=== PATIENT | male | born 1980 | race Caucasian/White ===

== ENCOUNTER 2017-08-05 20:16 | Emergency (ER) | payer MEDICAID ==
[~2017-08-05] VITALS: Ht 170.2 cm; Wt 49.9 kg
[~2017-08-05 20:16] MED LIST: HYDR25CA PO; LAMO25TA5 PO; LORA-445 PO; LORA-446 PO; MULT400T5 PO
[2017-08-05 20:19] VITALS: BP 132/85
[2017-08-05] MEDS ORDERED: hydrOXyzine 50MG TABLET ONE (20:55)
[2017-08-05] MEDS ORDERED: TRIAMCINOLONE ACETONIDE 40 MG/ML, 1ML IM ONE (21:00)
== END 2017-08-05 21:29 | disposition home or self-care (01) ==
LOC: ED 20:46
DX: L20.9 Atopic dermatitis, unspecified (principal); B86 Scabies
CPT/HCPCS: 96372; 99283; J3301; Q0177

== ENCOUNTER 2017-08-06 10:26 | Emergency (ER) | payer MEDICAID ==
[~2017-08-06] VITALS: Ht 170.2 cm; Wt 50.0 kg
[2017-08-06] MEDS ORDERED: THIAMINE 100MG TABLET ONE (10:41)
[2017-08-06] MEDS ORDERED: LORazepam 2 MG/ML, 1ML ONE ×3 (10:42→11:55)
[2017-08-06 11:00] LABS: BASOPHILS # (AUTO) 0.03 x10^3/uL (0-0.1); BASOPHILS % (AUTO) 0 % (0-1); EOSINOPHILS # (AUTO) 0.01 x10^3/uL (0-0.4); EOSINOPHILS % (AUTO) 0 % (1-7); LYMPHOCYTES # (AUTO) 0.39 x10^3/uL (1-3.4); LYMPHOCYTES % (AUTO) 5 % (22-44); MD NO; MEAN CORPUSCULAR HEMOGLOBIN 36.5 pg (27.5-34.5); MEAN CORPUSCULAR HGB CONC 34.4 g/dL (33.2-36.2); MEAN PLATELET VOLUME 7.1 fL (7.4-10.4); MONOCYTES # (AUTO) 0.65 x10^3/uL (0.2-0.8); MONOCYTES % (AUTO) 9 % (2-9); NEUTROPHILS # (AUTO) 6.12 x10^3/uL (1.8-6.8); NEUTROPHILS % (AUTO) 85 % (42-75); PLATELET COUNT 164 x10^3/uL (130-400); RED BLOOD COUNT 3.94 x10^6/uL (4.38-5.82); RED CELL DISTRIBUTION WIDTH 14.9 % (9.4-14.8)
[2017-08-06] MEDS ORDERED: THIAMINE 100MG TABLET PO ONE (11:00)
[2017-08-06] MEDS ORDERED: SODIUM CHLORIDE 0.9% 1,000ML IVBOLUS ONE (11:00)
[2017-08-06] MEDS ORDERED: LORazepam 2 MG/ML, 1ML IVPush ONE ×2 (11:00→12:00)
[2017-08-06] MEDS ORDERED: SODIUM CHLORIDE FLUSH 10ML SYR IVF ONE (11:00)
[2017-08-06 11:09] LABS: ALANINE AMINOTRANSFERASE 74 U/L (12-78); ALBUMIN 3.3 g/dL (3.4-5.0); ANION GAP 17 mmol/L (5-15); CALCIUM 8.7 mg/dL (8.5-10.1); CHLORIDE 101 mmol/L (98-107); CREATININE 0.86 mg/dL (0.7-1.3)
[2017-08-06 11:11] LABS: ALKALINE PHOSPHATASE 112 U/L (45-117); BILIRUBIN,TOTAL 0.5 mg/dL (0.2-1.0); TOTAL PROTEIN 9.1 g/dL (6.4-8.2)
[2017-08-06 12:28] VITALS: BP 127/72
== END 2017-08-06 12:52 | disposition home or self-care (01) ==
LOC: ED 11:14
DX: R56.9 Unspecified convulsions (principal); F10.239 Alcohol dependence with withdrawal, unspecified; R45.1 Restlessness and agitation
CPT/HCPCS: 36415; 70450; 80053; 85025; 93005; 96374; 96376; 99285; J2060; J7030

== ENCOUNTER 2017-09-24 16:44 | Inpatient (IN) | payer MEDICAID ==
[~2017-09-24] VITALS: Ht 170.2 cm; Wt 54.4 kg
[2017-09-24] MEDS ORDERED: LORazepam 2 MG/ML, 1ML ONE ×2 (16:54→18:11)
[2017-09-24] MEDS ORDERED: SODIUM CHLORIDE 0.9% 1,000ML IVBOLUS ONE (17:00)
[2017-09-24] MEDS: LORazepam 2 MG/ML, 1ML IVPush PRN ×3 (17:00→18:17)
[2017-09-24] MEDS ORDERED: ONDANSETRON 2MG/ML, 2ML IVPush ONE (17:00)
[2017-09-24] MEDS ORDERED: THIAMINE 100 MG in SODIUM CHLORIDE 0.9% 50 ML IVPB ONE (17:00)
[2017-09-24] MEDS ORDERED: ONDANSETRON 2MG/ML, 2ML ONE (17:27)
[2017-09-24 17:41] LABS: ALBUMIN 3.1 g/dL (3.4-5.0); ANION GAP 22 mmol/L (5-15); CALCIUM 7.5 mg/dL (8.5-10.1); CHLORIDE 92 mmol/L (98-107)
[2017-09-24 17:45] LABS: ALANINE AMINOTRANSFERASE 103 U/L (12-78); ALKALINE PHOSPHATASE 107 U/L (45-117); BILIRUBIN,TOTAL 1.1 mg/dL (0.2-1.0); CREATININE 0.93 mg/dL (0.7-1.3); TOTAL PROTEIN 7.4 g/dL (6.4-8.2)
[2017-09-24 17:51] LABS: MEAN CORPUSCULAR HEMOGLOBIN 36.9 pg (27.5-34.5); MEAN CORPUSCULAR HGB CONC 34.9 g/dL (33.2-36.2); MEAN CORPUSCULAR VOLUME 105.8 fL (81-97); MEAN PLATELET VOLUME 7.6 fL (7.4-10.4); PLATELET COUNT 82 x10^3/uL (130-400); RED BLOOD COUNT 4.23 x10^6/uL (4.38-5.82); RED CELL DISTRIBUTION WIDTH 13.2 % (9.4-14.8)
[2017-09-24 17:52] LABS: MD YES
[2017-09-24 17:55] LABS: BAND#(MANUAL) 2.11 x10^3/uL; BANDS%(MANUAL) 19 % (0-7); EOS#(MANUAL) 0.11 x10^3/uL (0.0-0.4); EOS% (MANUAL) 1 % (1-7); LYMPH#(MANUAL) 0.44 x10^3/uL (1-3.4); LYMPHS% (MANUAL) 4 % (22-44); MONOS#(MANUAL) 0.56 x10^3/uL (0.3-2.7); MONOS% (MANUAL) 5 % (2-9); SEG#(MANUAL) 7.88 x10^3/uL (1.8-6.8); SEGS% (MANUAL) 71 % (42-75)
[2017-09-24 17:57] LABS: <PLATELET ESTIMATE> DECREASED; LARGE PLATELETS 1+; TOXIC GRAN 1+
[2017-09-24] MEDS ORDERED: POTASSIUM CHLORIDE 10 MEQ in D5%-0.45% NACL 1,000 ML IV SCH (18:00)
[2017-09-24] MEDS ORDERED: ACETAMINOPHEN 500 MG TABLET PO ONE (18:00)
[2017-09-24] MEDS ORDERED: LORazepam 0.5MG TABLET PO PRN (18:30)
[2017-09-24] MEDS ORDERED: BACLOFEN 10 MG TABLET PO PRN (18:30)
[2017-09-24] MEDS ORDERED: ONDANSETRON 2MG/ML, 2ML IVPush PRN (18:30)
[2017-09-24] MEDS ORDERED: LORazepam 2 MG/ML, 1ML IV PRN ×5 (18:30)
[2017-09-24] MEDS ORDERED: CHLORDIAZEPOXIDE 10 MG CAPSULE PO PRN (18:30)
[2017-09-24] MEDS ORDERED: LORazepam 1MG TABLET PO PRN ×3 (18:30)
[2017-09-24] MEDS ORDERED: DIPHENHYDRAMINE 50 MG CAPSULE PO PRN (18:30)
[2017-09-24] MEDS ORDERED: ACETAMINOPHEN 325 MG TABLET PO PRN (18:30)
[2017-09-24] MEDS ORDERED: ONDANSETRON ODT 4 MG PO PRN (18:30)
[2017-09-24] MEDS ORDERED: LABETALOL 5MG/ML, 20ML IVPush PRN (18:30)
[2017-09-24] MEDS ORDERED: CHLORDIAZEPOXIDE 25 MG CAPSULE PO PRN ×3 (18:30)
[2017-09-24] MEDS ORDERED: ENOXAPARIN 40 MG/0.4 ML SQ SCH (18:30)
[2017-09-24] MEDS ORDERED: morphine SULFATE 10 MG/ML, 1ML IVPush PRN (18:30)
[2017-09-24 21:14] VITALS: BP 121/85
[2017-09-24] MEDS: MAGNESIUM CHLORIDE 64 MG TABLET.DR PO SCH (21:54)
[2017-09-24] MEDS: SODIUM BICARBONATE 8.4% 150 MEQ in DEXTROSE 5% 1,000 ML IV SCH (23:07)
[2017-09-25 00:41] VITALS: BP 121/85
[2017-09-25 02:27] VITALS: BP 124/86
[2017-09-25] MEDS: SODIUM BICARBONATE 8.4% 150 MEQ in DEXTROSE 5% 1,000 ML IV SCH (04:39)
[2017-09-25] MEDS: LORazepam 1MG TABLET PO PRN ×2 (04:39→10:52)
[2017-09-25 06:58] LABS: ALANINE AMINOTRANSFERASE 103 U/L (12-78); ALBUMIN 2.8 g/dL (3.4-5.0); ANION GAP 11 mmol/L (5-15); CALCIUM 7.2 mg/dL (8.5-10.1); CHLORIDE 88 mmol/L (98-107); CREATININE 0.76 mg/dL (0.7-1.3)
[2017-09-25 07:00] LABS: ALKALINE PHOSPHATASE 95 U/L (45-117); BILIRUBIN,TOTAL 1.9 mg/dL (0.2-1.0); TOTAL PROTEIN 6.8 g/dL (6.4-8.2)
[2017-09-25 08:00] VITALS: BP 125/84
[2017-09-25] MEDS ORDERED: MAGNESIUM SULFATE PMX 2GM/50ML 50 ML IV ONE (08:30)
[2017-09-25] MEDS: MULTIVITAMINS/MINERALS TABLET PO SCH (08:33)
[2017-09-25] MEDS: MAGNESIUM CHLORIDE 64 MG TABLET.DR PO SCH ×3 (08:33→21:18)
[2017-09-25 08:38] LABS: MD YES; MEAN CORPUSCULAR HEMOGLOBIN 36.3 pg (27.5-34.5); MEAN CORPUSCULAR HGB CONC 34.9 g/dL (33.2-36.2); MEAN PLATELET VOLUME 7.9 fL (7.4-10.4); PLATELET COUNT 55 x10^3/uL (130-400); RED BLOOD COUNT 3.53 x10^6/uL (4.38-5.82)
[2017-09-25 08:45] LABS: BANDS%(MANUAL) 14 % (0-7); LYMPH#(MANUAL) 0.34 x10^3/uL (1-3.4); LYMPHS% (MANUAL) 4 % (22-44); METAMYELOCYTES# (MANUAL) 0.43 x10^3/uL (0-0); METAMYELOCYTES% (MANUAL) 5 % (0-1); MONOS#(MANUAL) 0.17 x10^3/uL (0.3-2.7); MONOS% (MANUAL) 2 % (2-9); SEG#(MANUAL) 6.45 x10^3/uL (1.8-6.8); SEGS% (MANUAL) 75 % (42-75)
[2017-09-25 08:46] LABS: <PLATELET ESTIMATE> DECREASED; <PLT MORPHOLOGY> NORMAL PLT MORPH; TOXIC GRAN 1+
[2017-09-25] MEDS ORDERED: PIPERONYL BUTOXIDE/PYRETHRINS SHAMPOO TP SCH (09:00)
[2017-09-25 09:17] LABS: THYROID STIMULATING HORMONE 3.15 mIU/L (0.358-3.740)
[2017-09-25 09:19] LABS: FOLATE LEVEL 7.4 ng/mL (3.1-17.5)
[2017-09-25] MEDS: CHLORDIAZEPOXIDE 25 MG CAPSULE PO SCH ×2 (10:09→17:01)
[2017-09-25] MEDS: POTASSIUM CHLORIDE 20 MEQ, MAGNESIUM SULFATE 1 GM, THIAMINE 200 MG, FOLIC ACID 1 MG, MV... IV SCH (10:09)
[2017-09-25 14:00] VITALS: BP_SYST 122; BP_SYST 153; BP_DIAS 77; BP_DIAS 88
[2017-09-25] MEDS: SODIUM CHLORIDE 0.9% 1,000 ML IV SCH ×2 (14:12→21:23)
[2017-09-25 14:19] LABS: CULTURE INDICATED? NO; MICROSCOPIC INDICATED
[2017-09-25 14:29] LABS: AMPHETAMINE SCREEN, URINE Negative (Negative); BARBITURATE SCREEN, URINE Negative (Negative); BENZODIAZEPINE SCREEN, URINE Negative (Negative); CANNABINOID SCREEN, URINE Negative (Negative); COCAINE SCREEN, URINE Negative (Negative); METHADONE SCREEN, URINE Negative (Negative); OPIATE SCREEN, URINE Negative (Negative)
[2017-09-25 15:34] LABS: ANION GAP 11 mmol/L (5-15); CALCIUM 7.1 mg/dL (8.5-10.1); CHLORIDE 94 mmol/L (98-107); CREATININE 0.44 mg/dL (0.7-1.3)
[2017-09-25 20:00] VITALS: BP 134/82
[2017-09-26] MEDS: CHLORDIAZEPOXIDE 25 MG CAPSULE PO SCH (01:23)
[2017-09-26 01:24] VITALS: BP 114/75
[2017-09-26] MEDS: SODIUM CHLORIDE 0.9% 1,000 ML IV SCH (04:15)
[2017-09-26 07:50] VITALS: BP 124/75
[2017-09-26] MEDS ORDERED: CHLORDIAZEPOXIDE 25 MG CAPSULE PO ONE (08:30)
[2017-09-26] MEDS: POTASSIUM CHLORIDE 20 MEQ, MAGNESIUM SULFATE 1 GM, THIAMINE 200 MG, FOLIC ACID 1 MG, MV... IV SCH (08:58)
[2017-09-26] MEDS: MULTIVITAMINS/MINERALS TABLET PO SCH (08:59)
[2017-09-26] MEDS: MAGNESIUM CHLORIDE 64 MG TABLET.DR PO SCH ×3 (08:59→22:07)
[2017-09-26 11:05] LABS: MEAN CORPUSCULAR HEMOGLOBIN 36.5 pg (27.5-34.5); MEAN CORPUSCULAR HGB CONC 34.5 g/dL (33.2-36.2); MEAN CORPUSCULAR VOLUME 105.7 fL (81-97); RED CELL DISTRIBUTION WIDTH 13.5 % (9.4-14.8)
[2017-09-26 11:10] LABS: ALBUMIN 2.4 g/dL (3.4-5.0); ANION GAP 12 mmol/L (5-15); CALCIUM 6.8 mg/dL (8.5-10.1); CHLORIDE 95 mmol/L (98-107)
[2017-09-26 11:14] LABS: ALANINE AMINOTRANSFERASE 85 U/L (12-78); ALKALINE PHOSPHATASE 105 U/L (45-117); BILIRUBIN,TOTAL 1.2 mg/dL (0.2-1.0); CREATININE 0.35 mg/dL (0.7-1.3); TOTAL PROTEIN 5.9 g/dL (6.4-8.2)
[2017-09-26 11:16] LABS: MD YES; MEAN PLATELET VOLUME 8.7 fL (7.4-10.4); PLATELET COUNT 70 x10^3/uL (130-400)
[2017-09-26 11:18] LABS: BAND#(MANUAL) 0.29 x10^3/uL; BANDS%(MANUAL) 4 % (0-7); EOS#(MANUAL) 0.07 x10^3/uL (0.0-0.4); EOS% (MANUAL) 1 % (1-7); LYMPH#(MANUAL) 0.29 x10^3/uL (1-3.4); LYMPHS% (MANUAL) 4 % (22-44); MONOS#(MANUAL) 0.51 x10^3/uL (0.3-2.7); MONOS% (MANUAL) 7 % (2-9); SEG#(MANUAL) 6.13 x10^3/uL (1.8-6.8); SEGS% (MANUAL) 84 % (42-75)
[2017-09-26 11:19] LABS: <PLATELET ESTIMATE> DECREASED; <PLT MORPHOLOGY> NORMAL PLT MORPH; TOXIC GRAN 1+
[2017-09-26 14:00] VITALS: BP 120/84
[2017-09-26] MEDS: POTASSIUM CHLORIDE 20 MEQ TAB.ER.PRT PO SCH ×2 (16:50→17:00)
[2017-09-26 18:32] VITALS: BP 120/71
[2017-09-27 02:00] VITALS: BP 117/78
[2017-09-27 07:54] VITALS: BP 121/81
[2017-09-27 08:19] LABS: BASOPHILS # (AUTO) 0.04 x10^3/uL (0-0.1); BASOPHILS % (AUTO) 1 % (0-1); EOSINOPHILS # (AUTO) 0.12 x10^3/uL (0-0.4); EOSINOPHILS % (AUTO) 2 % (1-7); LYMPHOCYTES # (AUTO) 0.52 x10^3/uL (1-3.4); LYMPHOCYTES % (AUTO) 7 % (22-44); MD NO; MEAN CORPUSCULAR HEMOGLOBIN 36.1 pg (27.5-34.5); MEAN CORPUSCULAR HGB CONC 34.1 g/dL (33.2-36.2); MEAN CORPUSCULAR VOLUME 105.9 fL (81-97); MONOCYTES # (AUTO) 0.85 x10^3/uL (0.2-0.8); MONOCYTES % (AUTO) 12 % (2-9); NEUTROPHILS # (AUTO) 5.83 x10^3/uL (1.8-6.8); NEUTROPHILS % (AUTO) 79 % (42-75); PLATELET COUNT 129 x10^3/uL (130-400); RED BLOOD COUNT 3.48 x10^6/uL (4.38-5.82); RED CELL DISTRIBUTION WIDTH 13.6 % (9.4-14.8)
[2017-09-27 08:28] LABS: ALANINE AMINOTRANSFERASE 100 U/L (12-78); ALBUMIN 2.6 g/dL (3.4-5.0); ANION GAP 6 mmol/L (5-15); CALCIUM 7.8 mg/dL (8.5-10.1); CHLORIDE 101 mmol/L (98-107); CREATININE 0.57 mg/dL (0.7-1.3)
[2017-09-27 08:30] LABS: ALKALINE PHOSPHATASE 155 U/L (45-117); BILIRUBIN,TOTAL 1.2 mg/dL (0.2-1.0); TOTAL PROTEIN 6.9 g/dL (6.4-8.2)
[2017-09-27] MEDS ORDERED: POTASSIUM CHLORIDE 40 MEQ in SODIUM CHLORIDE 0.9% 1,000 ML IV SCH (09:00)
[2017-09-27] MEDS: MULTIVITAMINS/MINERALS TABLET PO SCH (10:22)
[2017-09-27] MEDS: POTASSIUM CHLORIDE 20 MEQ TAB.ER.PRT PO SCH (10:22)
[2017-09-27] MEDS: POTASSIUM CHLORIDE 20 MEQ, MAGNESIUM SULFATE 1 GM, THIAMINE 200 MG, FOLIC ACID 1 MG, MV... IV SCH (10:23)
[2017-09-27 12:00] VITALS: BP 149/103
[2017-09-27 12:52] LABS: CLOSTRIDIUM DIFFICILE ANTIGEN POSITIVE; CLOSTRIDIUM DIFFICILE TOXIN NEGATIVE (Negative)
[2017-09-27 21:28] VITALS: BP 121/79
[2017-09-28 03:23] VITALS: BP 132/88
[2017-09-28 06:23] LABS: CHLORIDE 101 mmol/L (98-107)
[2017-09-28 06:31] LABS: ALANINE AMINOTRANSFERASE 134 U/L (12-78); ALBUMIN 2.6 g/dL (3.4-5.0); ALKALINE PHOSPHATASE 198 U/L (45-117); ANION GAP 8 mmol/L (5-15); BILIRUBIN,TOTAL 1.2 mg/dL (0.2-1.0); CALCIUM 7.9 mg/dL (8.5-10.1); CREATININE 0.41 mg/dL (0.7-1.3); TOTAL PROTEIN 6.7 g/dL (6.4-8.2)
[2017-09-28 07:46] VITALS: BP 115/80
[2017-09-28] MEDS ORDERED: PERMETHRIN CRM 5%, 60GM TP ONE (08:30)
[2017-09-28] MEDS ORDERED: DIPHENHYDRAMINE/ZINC CRM 2%, 30GM TP PRN (08:30)
[2017-09-28] MEDS ORDERED: FOLIC ACID 1 MG TABLET PO SCH (09:00)
[2017-09-28] MEDS ORDERED: MULTIVITAMIN 1 TABLET PO SCH (09:00)
[2017-09-28] MEDS: MULTIVITAMINS/MINERALS TABLET PO SCH (09:00)
[2017-09-28] MEDS ORDERED: THIAMINE 100MG TABLET PO SCH (09:00)
[2017-09-28] MEDS ORDERED: DIPH28CR5 TP (11:24)
[2017-09-28] MEDS ORDERED: THIA100T67 PO (11:24)
[2017-09-28] MEDS ORDERED: FOLI-17 PO (11:24)
[2017-09-28] MEDS ORDERED: HYDR25TA11 PO (11:24)
[2017-09-28] MEDS ORDERED: MULT1TAB60 PO (11:24)
== END 2017-09-28 12:58 | disposition home or self-care (01) | DRG 432 ==
LOC: ED 18:03 → EDIP 18:04 → ED 18:16 → 4WST 19:05 → 4EST 09-25 03:35
PROVIDERS: ADMIT Internal Medicine; ATTEND Internal Medicine
DX: K70.10 Alcoholic hepatitis without ascites (principal); K85.20 Alcohol induced acute pancreatitis without necrosis or infection; E44.0 Moderate protein-calorie malnutrition; Z68.1 Body mass index [BMI] 19.9 or less, adult; E87.1 Hypo-osmolality and hyponatremia; E87.2 Acidosis; F10.239 Alcohol dependence with withdrawal, unspecified; D69.6 Thrombocytopenia, unspecified; D75.89 Other specified diseases of blood and blood-forming organs; E83.42 Hypomagnesemia; E83.51 Hypocalcemia; E86.0 Dehydration; E87.6 Hypokalemia; F32.9 Major depressive disorder, single episode, unspecified; G40.909 Epilepsy, unspecified, not intractable, without status epilepticus; Z81.8 Family history of other mental and behavioral disorders
CPT/HCPCS: 36415; 71045; 76700; 80048; 80053; 80307; 81001; 82607; 82746; 82962; 83690; 83735; 84100; 84443; 85025; 87324; 93005; 96361; 96365; 96375; 99291; J2405; J3411; J3475; J3480; J7070; J2060; J2270; J7030; Q0177

== ENCOUNTER 2017-11-13 00:52 | Inpatient (IN) | payer MEDICAID ==
[~2017-11-13] VITALS: Ht 170.2 cm; Wt 66.2 kg
[~2017-11-13 00:52] MED LIST changes: +DIPH28CR5 TP; +FOLI-17 PO; +HYDR25TA11 PO; +MULT1TAB60 PO; +THIA100T67 PO
[2017-11-13 01:20] LABS: BASOPHILS # (AUTO) 0.01 x10^3/uL (0-0.1); BASOPHILS % (AUTO) 0 % (0-1); EOSINOPHILS # (AUTO) 0.02 x10^3/uL (0-0.4); EOSINOPHILS % (AUTO) 0 % (1-7); LYMPHOCYTES # (AUTO) 0.29 x10^3/uL (1-3.4); LYMPHOCYTES % (AUTO) 3 % (22-44); MD NO; MEAN CORPUSCULAR HEMOGLOBIN 36.3 pg (27.5-34.5); MEAN CORPUSCULAR HGB CONC 34.4 g/dL (33.2-36.2); MEAN CORPUSCULAR VOLUME 105.5 fL (81-97); MEAN PLATELET VOLUME 7.2 fL (7.4-10.4); MONOCYTES # (AUTO) 1.09 x10^3/uL (0.2-0.8); MONOCYTES % (AUTO) 11 % (2-9); NEUTROPHILS % (AUTO) 85 % (42-75); PLATELET COUNT 136 x10^3/uL (130-400); RED BLOOD COUNT 3.48 x10^6/uL (4.38-5.82); RED CELL DISTRIBUTION WIDTH 16.1 % (9.4-14.8)
[2017-11-13 01:30] LABS: ALANINE AMINOTRANSFERASE 77 U/L (12-78); ALBUMIN 3.5 g/dL (3.4-5.0); ANION GAP 19 mmol/L (5-15); CALCIUM 8.3 mg/dL (8.5-10.1); CHLORIDE 92 mmol/L (98-107); CREATININE 0.76 mg/dL (0.7-1.3)
[2017-11-13 01:32] LABS: ALKALINE PHOSPHATASE 134 U/L (45-117); BILIRUBIN,TOTAL 1.7 mg/dL (0.2-1.0); TOTAL PROTEIN 7.8 g/dL (6.4-8.2)
[2017-11-13] MEDS ORDERED: ONDANSETRON ODT 4 MG ONE (01:59)
[2017-11-13] MEDS ORDERED: ONDANSETRON ODT 4 MG PO ONE (02:00)
[2017-11-13] MEDS ORDERED: SODIUM CHLORIDE 0.9% 1,000ML IVBOLUS ONE (02:00)
[2017-11-13] MEDS ORDERED: METOCLOPRAMIDE 5 MG/ML, 2ML IVPush ONE (02:30)
[2017-11-13] MEDS ORDERED: LORazepam 2 MG/ML, 1ML ONE ×2 (02:40→02:44)
[2017-11-13] MEDS ORDERED: LORazepam 2 MG/ML, 1ML IVPush ONE (03:00)
[2017-11-13] MEDS ORDERED: POTASSIUM CHLORIDE 20 MEQ, MAGNESIUM SULFATE 2 GM, THIAMINE 100 MG, MVI ADULT 10 ML, FO... IV SCH ×2 (03:00→05:39)
[2017-11-13] MEDS ORDERED: METOCLOPRAMIDE 5 MG/ML, 2ML ONE (03:01)
[2017-11-13] MEDS ORDERED: POTASSIUM CHLORIDE 20 MEQ, MAGNESIUM SULFATE 1 GM, THIAMINE 200 MG, FOLIC ACID 1 MG, MV... IV ONE (03:17)
[2017-11-13] MEDS ORDERED: ONDANSETRON 2MG/ML, 2ML IVPush PRN ×2 (03:30→06:00)
[2017-11-13 03:56] VITALS: BP 108/68
[2017-11-13] MEDS ORDERED: LORazepam 1MG TABLET ONE (05:55)
[2017-11-13] MEDS ORDERED: TEMAZEPAM 15 MG CAPSULE PO PRN (06:00)
[2017-11-13] MEDS ORDERED: LORazepam 1MG TABLET PO PRN (06:00)
[2017-11-13] MEDS ORDERED: LABETALOL 5MG/ML, 20ML IVPush PRN (06:00)
[2017-11-13] MEDS ORDERED: LORazepam 2 MG/ML, 1ML IVPush PRN ×2 (06:00→14:00)
[2017-11-13] MEDS ORDERED: ACETAMINOPHEN 325 MG TABLET PO PRN (06:00)
[2017-11-13] MEDS ORDERED: ONDANSETRON ODT 4 MG PO PRN (06:00)
[2017-11-13 06:38] LABS: HEMOGLOBIN A1C 4.9 % (4.2-6.3)
[2017-11-13 06:49] VITALS: BP 101/66
[2017-11-13] MEDS: FAMOTIDINE 20 MG/2 ML IVPush SCH ×2 (07:24→21:00)
[2017-11-13] MEDS ORDERED: CHLORDIAZEPOXIDE 25 MG CAPSULE PO PRN ×3 (10:30)
[2017-11-13] MEDS ORDERED: BISACODYL 10 MG SUPP PR PRN (10:30)
[2017-11-13] MEDS ORDERED: DIPHENHYDRAMINE 50 MG/ML, 1ML IVPush PRN ×3 (10:30→11:00)
[2017-11-13] MEDS ORDERED: CALAMINE LOTION 180ML TP PRN ×2 (10:30→11:00)
[2017-11-13] MEDS: DOCUSATE 100 MG CAPSULE PO SCH (10:36)
[2017-11-13] MEDS: CHLORDIAZEPOXIDE 10 MG CAPSULE PO PRN (10:36)
[2017-11-13 10:57] LABS: BASOPHILS # (AUTO) 0.04 x10^3/uL (0-0.1); BASOPHILS % (AUTO) 1 % (0-1); EOSINOPHILS # (AUTO) 0.01 x10^3/uL (0-0.4); EOSINOPHILS % (AUTO) 0 % (1-7); LYMPHOCYTES # (AUTO) 0.67 x10^3/uL (1-3.4); LYMPHOCYTES % (AUTO) 9 % (22-44); MD NO; MEAN CORPUSCULAR HEMOGLOBIN 36.5 pg (27.5-34.5); MEAN CORPUSCULAR HGB CONC 34.6 g/dL (33.2-36.2); MEAN CORPUSCULAR VOLUME 105.5 fL (81-97); MEAN PLATELET VOLUME 7.9 fL (7.4-10.4); MONOCYTES # (AUTO) 0.86 x10^3/uL (0.2-0.8); MONOCYTES % (AUTO) 11 % (2-9); NEUTROPHILS # (AUTO) 6.09 x10^3/uL (1.8-6.8); NEUTROPHILS % (AUTO) 79 % (42-75); PLATELET COUNT 118 x10^3/uL (130-400); RED BLOOD COUNT 3.46 x10^6/uL (4.38-5.82); RED CELL DISTRIBUTION WIDTH 15.8 % (9.4-14.8)
[2017-11-13 11:09] LABS: ANION GAP 14 mmol/L (5-15); CHLORIDE 96 mmol/L (98-107); CREATININE 0.59 mg/dL (0.7-1.3)
[2017-11-13 15:18] VITALS: BP 105/74
[2017-11-13] MEDS: VANCOMYCIN 1,300 MG in SODIUM CHLORIDE 0.9% 250 ML IV SCH (16:30)
[2017-11-13] MEDS ORDERED: PHARMACOKINETIC CONSULTATION MC ONE (16:30)
[2017-11-13] MEDS ORDERED: PHARMACOKINETIC MONITORING MC PRN (16:30)
[2017-11-13] MEDS ORDERED: VANCOMYCIN PER PHARMACY MC PRN (16:30)
[2017-11-13] MEDS: AMPICILLIN/SULBACTAM 3 GM in SODIUM CHLORIDE 0.9% 100 ML IV SCH (21:17)
[2017-11-13 21:28] VITALS: BP 139/78
[2017-11-13 23:52] LABS: MICROSCOPIC INDICATED
[2017-11-13 23:57] LABS: CULTURE INDICATED? YES
[2017-11-14] MEDS: CHLORDIAZEPOXIDE 10 MG CAPSULE PO PRN (00:07)
[2017-11-14 02:39] VITALS: BP 122/85
[2017-11-14] MEDS: AMPICILLIN/SULBACTAM 3 GM in SODIUM CHLORIDE 0.9% 100 ML IV SCH ×2 (03:30→10:12)
[2017-11-14] MEDS: VANCOMYCIN 1,300 MG in SODIUM CHLORIDE 0.9% 250 ML IV SCH (04:30)
[2017-11-14 05:45] LABS: BASOPHILS # (AUTO) 0.02 x10^3/uL (0-0.1); BASOPHILS % (AUTO) 0 % (0-1); EOSINOPHILS # (AUTO) 0.05 x10^3/uL (0-0.4); EOSINOPHILS % (AUTO) 1 % (1-7); LYMPHOCYTES # (AUTO) 0.57 x10^3/uL (1-3.4); LYMPHOCYTES % (AUTO) 9 % (22-44); MD NO; MEAN CORPUSCULAR HEMOGLOBIN 36.1 pg (27.5-34.5); MEAN CORPUSCULAR HGB CONC 34.5 g/dL (33.2-36.2); MEAN CORPUSCULAR VOLUME 104.4 fL (81-97); MEAN PLATELET VOLUME 8.2 fL (7.4-10.4); MONOCYTES # (AUTO) 0.81 x10^3/uL (0.2-0.8); MONOCYTES % (AUTO) 13 % (2-9); NEUTROPHILS # (AUTO) 4.88 x10^3/uL (1.8-6.8); NEUTROPHILS % (AUTO) 77 % (42-75); PLATELET COUNT 102 x10^3/uL (130-400); RED BLOOD COUNT 3.58 x10^6/uL (4.38-5.82)
[2017-11-14 05:58] LABS: ALBUMIN 3.4 g/dL (3.4-5.0); ANION GAP 14 mmol/L (5-15); CALCIUM 8.6 mg/dL (8.5-10.1); CHLORIDE 96 mmol/L (98-107)
[2017-11-14 06:02] LABS: ALANINE AMINOTRANSFERASE 70 U/L (12-78); ALKALINE PHOSPHATASE 127 U/L (45-117); BILIRUBIN,TOTAL 1.6 mg/dL (0.2-1.0); CREATININE 0.51 mg/dL (0.7-1.3); TOTAL PROTEIN 7.7 g/dL (6.4-8.2)
[2017-11-14 06:39] VITALS: BP 107/65
[2017-11-14] MEDS ORDERED: POTASSIUM CHLORIDE 40 MEQ in SODIUM CHLORIDE 0.9% 500 ML IV ONE (08:30)
[2017-11-14] MEDS: DOCUSATE 100 MG CAPSULE PO SCH (08:45)
[2017-11-14] MEDS ORDERED: TRIAMCINOLONE CRM 0.1%, 15GM TP SCH (09:00)
[2017-11-14] MEDS: FAMOTIDINE 20 MG/2 ML IVPush SCH (10:12)
[2017-11-14] MEDS ORDERED: POTASSIUM CHLORIDE 20 MEQ TAB.ER.PRT PO SCH ×2 (12:30→17:00)
== END 2017-11-14 14:30 | disposition left against medical advice (07) | DRG 872 ==
LOC: ED 01:36 → EDIP 03:03 → 4EST 03:31 → 4WST 14:03
PROVIDERS: ADMIT Internal Medicine; ATTEND Internal Medicine
DX: A41.9 Sepsis, unspecified organism (principal); E87.1 Hypo-osmolality and hyponatremia; F10.231 Alcohol dependence with withdrawal delirium; B88.8 Other specified infestations; D50.9 Iron deficiency anemia, unspecified; D53.9 Nutritional anemia, unspecified; E83.39 Other disorders of phosphorus metabolism; E83.42 Hypomagnesemia; E87.6 Hypokalemia; Y90.9 Presence of alcohol in blood, level not specified; G40.909 Epilepsy, unspecified, not intractable, without status epilepticus; K70.9 Alcoholic liver disease, unspecified; L29.9 Pruritus, unspecified; F32.9 Major depressive disorder, single episode, unspecified; L40.9 Psoriasis, unspecified; R73.9 Hyperglycemia, unspecified; S01.502A Unspecified open wound of oral cavity, initial encounter; X58.XXXA Exposure to other specified factors, initial encounter; Y93.89 Activity, other specified; Y92.89 Other specified places as the place of occurrence of the external cause; Y99.8 Other external cause status
CPT/HCPCS: 36415; 84145; S0028; 70450; 71045; 80048; 80053; 80307; 81001; 83036; 83735; 84100; 85025; 87040; 87086; 93005; G0378; J0295; J3370; J3411; J3475; J3480; Q0162; J1200; J2060; J2765; J7030; J7050

== ENCOUNTER 2018-02-01 13:42 | Inpatient (IN) | payer MEDICAID ==
[~2018-02-01] VITALS: Ht 172.7 cm; Wt 58.1 kg
[2018-02-01] MEDS ORDERED: ONDANSETRON 2MG/ML, 2ML ONE (14:16)
[2018-02-01 14:25] LABS: MEAN CORPUSCULAR HEMOGLOBIN 38.3 pg (27.5-34.5); MEAN CORPUSCULAR HGB CONC 34.8 g/dL (33.2-36.2); MEAN CORPUSCULAR VOLUME 110.3 fL (81-97); MEAN PLATELET VOLUME 7.2 fL (7.4-10.4); PLATELET COUNT 182 x10^3/uL (130-400); RED BLOOD COUNT 3.67 x10^6/uL (4.38-5.82); RED CELL DISTRIBUTION WIDTH 14.8 % (9.4-14.8)
[2018-02-01] MEDS ORDERED: ONDANSETRON 2MG/ML, 2ML IVPush ONE (14:30)
[2018-02-01] MEDS ORDERED: LORazepam 2 MG/ML, 1ML ONE ×2 (14:30→15:36)
[2018-02-01 14:31] LABS: ALANINE AMINOTRANSFERASE 28 U/L (12-78); ALBUMIN 3.7 g/dL (3.4-5.0); ANION GAP 21 mmol/L (5-15); CALCIUM 8.9 mg/dL (8.5-10.1); CHLORIDE 94 mmol/L (98-107); CREATININE 0.64 mg/dL (0.7-1.3)
[2018-02-01 14:34] LABS: ALKALINE PHOSPHATASE 101 U/L (45-117); BILIRUBIN,TOTAL 0.7 mg/dL (0.2-1.0); TOTAL PROTEIN 8.3 g/dL (6.4-8.2)
[2018-02-01] MEDS ORDERED: LORazepam 2 MG/ML, 1ML IVPush ONE ×2 (15:00→15:30)
[2018-02-01] MEDS ORDERED: MAGNESIUM SULFATE 1 GM, THIAMINE 100 MG, FOLIC ACID 1 MG, MVI ADULT 10 ML in SODIUM CHL... IV ONE (15:00)
[2018-02-01] MEDS ORDERED: SODIUM CHLORIDE 0.9% 1,000 ML IV ONE (15:24)
[2018-02-01 15:29] LABS: BASOPHILS # (AUTO) 0.05 x10^3/uL (0-0.1); BASOPHILS % (AUTO) 1 % (0-1); EOSINOPHILS # (AUTO) 0.62 x10^3/uL (0-0.4); EOSINOPHILS % (AUTO) 7 % (1-7); LYMPHOCYTES % (AUTO) 9 % (22-44); MD SCAN; MONOCYTES # (AUTO) 0.69 x10^3/uL (0.2-0.8); MONOCYTES % (AUTO) 7 % (2-9); NEUTROPHILS % (AUTO) 77 % (42-75)
[2018-02-01] MEDS ORDERED: POLYETHYLENE GLYCOL 17 GM PACKET PO PRN (16:00)
[2018-02-01] MEDS ORDERED: LABETALOL 5MG/ML, 20ML IVPush PRN (16:00)
[2018-02-01] MEDS ORDERED: HYDROcodone/APAP 5/325 TABLET PO PRN (16:00)
[2018-02-01] MEDS ORDERED: LIDODERM 5% PATCH TD PRN (16:00)
[2018-02-01] MEDS ORDERED: KETOROLAC 30 MG/1 ML IV PRN (16:00)
[2018-02-01] MEDS ORDERED: ENALAPRILAT 1.25 MG/ML, 2ML IVPush PRN (16:00)
[2018-02-01] MEDS ORDERED: BISACODYL 10 MG SUPP PR PRN (16:00)
[2018-02-01] MEDS ORDERED: ACETAMINOPHEN 325 MG TABLET PO PRN (16:00)
[2018-02-01] MEDS ORDERED: LORazepam 2 MG/ML, 1ML IV PRN ×4 (16:00)
[2018-02-01] MEDS ORDERED: ONDANSETRON ODT 4 MG PO PRN (16:00)
[2018-02-01] MEDS ORDERED: LORazepam 0.5MG TABLET PO PRN (16:00)
[2018-02-01] MEDS ORDERED: ONDANSETRON 2MG/ML, 2ML IVPush PRN (16:00)
[2018-02-01] MEDS ORDERED: LORazepam 1MG TABLET PO PRN ×3 (16:00)
[2018-02-01] MEDS: ENOXAPARIN 40 MG/0.4 ML SQ SCH (17:00)
[2018-02-01 18:01] VITALS: BP 118/75
[2018-02-01] MEDS: DOCUSATE 100 MG CAPSULE PO SCH (20:29)
[2018-02-01 20:56] LABS: MICROSCOPIC INDICATED
[2018-02-01 21:00] VITALS: BP 134/87
[2018-02-01 21:05] LABS: AMPHETAMINE SCREEN, URINE Negative (Negative); BARBITURATE SCREEN, URINE Negative (Negative); BENZODIAZEPINE SCREEN, URINE Negative (Negative); CANNABINOID SCREEN, URINE Negative (Negative); COCAINE SCREEN, URINE Negative (Negative); METHADONE SCREEN, URINE Negative (Negative); OPIATE SCREEN, URINE Negative (Negative)
[2018-02-01 21:12] LABS: CULTURE INDICATED? NO
[2018-02-02 01:55] VITALS: BP 122/77
[2018-02-02] MEDS: SODIUM CHLORIDE 0.9% 1,000 ML IV SCH ×2 (04:24→12:00)
[2018-02-02 04:58] LABS: BASOPHILS # (AUTO) 0.04 x10^3/uL (0-0.1); BASOPHILS % (AUTO) 0 % (0-1); EOSINOPHILS # (AUTO) 0.45 x10^3/uL (0-0.4); EOSINOPHILS % (AUTO) 5 % (1-7); LYMPHOCYTES # (AUTO) 0.98 x10^3/uL (1-3.4); LYMPHOCYTES % (AUTO) 11 % (22-44); MD NO; MEAN CORPUSCULAR HEMOGLOBIN 37.4 pg (27.5-34.5); MEAN CORPUSCULAR HGB CONC 33.5 g/dL (33.2-36.2); MEAN CORPUSCULAR VOLUME 111.6 fL (81-97); MEAN PLATELET VOLUME 7.5 fL (7.4-10.4); MONOCYTES # (AUTO) 0.67 x10^3/uL (0.2-0.8); MONOCYTES % (AUTO) 7 % (2-9); NEUTROPHILS # (AUTO) 6.89 x10^3/uL (1.8-6.8); NEUTROPHILS % (AUTO) 76 % (42-75); PLATELET COUNT 129 x10^3/uL (130-400); RED BLOOD COUNT 3.41 x10^6/uL (4.38-5.82); RED CELL DISTRIBUTION WIDTH 14.4 % (9.4-14.8)
[2018-02-02 05:04] LABS: ANION GAP 8 mmol/L (5-15); CALCIUM 8.2 mg/dL (8.5-10.1); CHLORIDE 98 mmol/L (98-107); CREATININE 0.37 mg/dL (0.7-1.3)
[2018-02-02 07:42] VITALS: BP 116/75
[2018-02-02] MEDS: DOCUSATE 100 MG CAPSULE PO SCH (10:22)
[2018-02-02 13:04] VITALS: BP 119/80
[2018-02-02] MEDS ORDERED: THIAMINE 200 MG, FOLIC ACID 1 MG, MVI ADULT 10 ML in SODIUM CHLORIDE 0.9% 1,000 ML IV SCH (15:00)
[2018-02-02] MEDS: ENOXAPARIN 40 MG/0.4 ML SQ SCH (17:00)
== END 2018-02-02 21:46 | disposition left against medical advice (07) | DRG 101 ==
LOC: ED 14:14 → EDIP 15:21 → 4EST 16:33
PROVIDERS: ADMIT Internal Medicine; ATTEND Internal Medicine
DX: G40.509 Epileptic seizures related to external causes, not intractable, without status epilepticus (principal); G37.2 Central pontine myelinolysis; E87.1 Hypo-osmolality and hyponatremia; F10.239 Alcohol dependence with withdrawal, unspecified; E87.2 Acidosis; Z53.21 Procedure and treatment not carried out due to patient leaving prior to being seen by health care provider; F41.1 Generalized anxiety disorder; Y90.6 Blood alcohol level of 120-199 mg/100 ml; E86.0 Dehydration; K70.9 Alcoholic liver disease, unspecified; K59.09 Other constipation; Z91.81 History of falling; Z79.899 Other long term (current) drug therapy
CPT/HCPCS: 36415; 70450; 71045; 80048; 80053; 80307; 81001; 83735; 84100; 85025; 93005; 95819; 96374; 96375; 96376; 99285; G0378; J2405; J3411; J3475; J2060; J7030

== ENCOUNTER 2018-03-22 23:17 | Emergency (ER) | payer MEDICAID ==
[~2018-03-22] VITALS: Ht 172.7 cm; Wt 65.0 kg
[~2018-03-22 23:17] MED LIST changes: +CALA118S2 TP; +CETI10TA18 PO; +DOCU-131 PO; +ERGO500017 PO; +ONDA4TAB13 PO; +SERT50TA28 PO
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
[2018-03-23] MEDS ORDERED: TRIAMCINOLONE CRM 0.1%, 15GM TP SCH
[2018-03-23 00:40] LABS: BASOPHILS # (AUTO) 0.02 x10^3/uL (0-0.1); BASOPHILS % (AUTO) 0 % (0-1); EOSINOPHILS # (AUTO) 1.63 x10^3/uL (0-0.4); EOSINOPHILS % (AUTO) 24 % (1-7); LYMPHOCYTES # (AUTO) 0.92 x10^3/uL (1-3.4); LYMPHOCYTES % (AUTO) 14 % (22-44); MD NO; MEAN CORPUSCULAR HEMOGLOBIN 36.6 pg (27.5-34.5); MEAN CORPUSCULAR HGB CONC 34.3 g/dL (33.2-36.2); MEAN CORPUSCULAR VOLUME 106.7 fL (81-97); MONOCYTES # (AUTO) 0.57 x10^3/uL (0.2-0.8); MONOCYTES % (AUTO) 9 % (2-9); NEUTROPHILS # (AUTO) 3.61 x10^3/uL (1.8-6.8); NEUTROPHILS % (AUTO) 53 % (42-75); PLATELET COUNT 185 x10^3/uL (130-400); RED BLOOD COUNT 4.31 x10^6/uL (4.38-5.82); RED CELL DISTRIBUTION WIDTH 14.7 % (9.4-14.8)
[2018-03-23 00:52] LABS: ALANINE AMINOTRANSFERASE 22 U/L (12-78); ALBUMIN 3.6 g/dL (3.4-5.0); ANION GAP 14 mmol/L (5-15); CALCIUM 8.6 mg/dL (8.5-10.1); CHLORIDE 101 mmol/L (98-107); CREATININE 0.75 mg/dL (0.7-1.3); SALICYLATE LEVEL 1.9 mg/dL (2.8-20.0)
[2018-03-23 00:53] LABS: ACETAMINOPHEN < 2 mcg/mL (10-30)
[2018-03-23 01:04] LABS: ALKALINE PHOSPHATASE 93 U/L (45-117); BILIRUBIN,TOTAL 0.2 mg/dL (0.2-1.0); TOTAL PROTEIN 8.8 g/dL (6.4-8.2)
--- NOTE | 2018-03-23 01:08 | NUR ---
URINE SAMPLE SENT. PROVIDED PT WITH WATER PER HIS REQUEST, OK PER ERP.
[2018-03-23 01:17] VITALS: BP 124/86
[2018-03-23 01:48] LABS: AMPHETAMINE SCREEN, URINE Negative (Negative); BARBITURATE SCREEN, URINE Negative (Negative); BENZODIAZEPINE SCREEN, URINE Positive (Negative); CANNABINOID SCREEN, URINE Negative (Negative); COCAINE SCREEN, URINE Negative (Negative); METHADONE SCREEN, URINE Negative (Negative); OPIATE SCREEN, URINE Negative (Negative)
--- NOTE | 2018-03-23 01:48 | NUR ---
PT REFUSING IV SITE, DISCUSSED NEED FOR IV SITE FOR ADMISSION AND IV ABX'X, PT CONTINOUS TO REFUSE IV SITE. PT STATED " I DONT' WANT AND IV AND I'M LEAVING". ERP UPDATED THAT PT DOES NOT WANT IV SITE AND WANTING TO LEAVE AMA.
--- NOTE | 2018-03-23 01:53 | NUR ---
PT SIGNED AMA FORM, FORM PLACED IN PT'S CHART
[2018-03-23] MEDS ORDERED: ERTAPENEM 1 GM in SODIUM CHLORIDE 0.9% 50 ML IV ONE (02:30)
== END 2018-03-23 02:32 | disposition left against medical advice (07) ==
LOC: ED 03-23 00:21
DX: L03.317 Cellulitis of buttock (principal); L29.9 Pruritus, unspecified; R74.0 Nonspecific elevation of levels of transaminase and lactic acid dehydrogenase [LDH]; R21 Rash and other nonspecific skin eruption; F32.9 Major depressive disorder, single episode, unspecified; G40.909 Epilepsy, unspecified, not intractable, without status epilepticus; F41.1 Generalized anxiety disorder; Z72.9 Problem related to lifestyle, unspecified
CPT/HCPCS: 36415; 80053; 80307; 80329; 83605; 85025; 87040; 99283; Q0177; G0480

== ENCOUNTER 2018-03-27 09:56 | Inpatient (IN) | payer MEDICAID ==
[~2018-03-27] VITALS: Ht 172.7 cm; Wt 63.8 kg
[2018-03-27] MEDS ORDERED: SODIUM CHLORIDE 0.9% 1,000ML IVBOLUS ONE (10:30)
[2018-03-27] MEDS ORDERED: ONDANSETRON 2MG/ML, 2ML IVPush ONE (10:30)
[2018-03-27] MEDS ORDERED: SODIUM CHLORIDE FLUSH 10ML SYR IVF ONE (10:30)
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
[2018-03-27 10:43] LABS: MEAN CORPUSCULAR HEMOGLOBIN 35.7 pg (27.5-34.5); MEAN CORPUSCULAR HGB CONC 33.9 g/dL (33.2-36.2); MEAN CORPUSCULAR VOLUME 105.3 fL (81-97); MEAN PLATELET VOLUME 7.2 fL (7.4-10.4); PLATELET COUNT 149 x10^3/uL (130-400); RED BLOOD COUNT 3.62 x10^6/uL (4.38-5.82); RED CELL DISTRIBUTION WIDTH 14.6 % (9.4-14.8)
[2018-03-27 10:55] LABS: ALANINE AMINOTRANSFERASE 19 U/L (12-78); ALBUMIN 3.8 g/dL (3.4-5.0); ANION GAP 19 mmol/L (5-15); CALCIUM 9.5 mg/dL (8.5-10.1); CHLORIDE 94 mmol/L (98-107); CREATININE 0.81 mg/dL (0.7-1.3)
[2018-03-27 10:58] LABS: ALKALINE PHOSPHATASE 82 U/L (45-117); BILIRUBIN,TOTAL 0.7 mg/dL (0.2-1.0); TOTAL PROTEIN 8.4 g/dL (6.4-8.2)
[2018-03-27] MEDS ORDERED: ONDANSETRON 2MG/ML, 2ML ONE (11:04)
[2018-03-27 11:11] LABS: BASOPHILS # (AUTO) 0.01 x10^3/uL (0-0.1); BASOPHILS % (AUTO) 0 % (0-1); EOSINOPHILS # (AUTO) 0.02 x10^3/uL (0-0.4); EOSINOPHILS % (AUTO) 0 % (1-7); LYMPHOCYTES # (AUTO) 0.41 x10^3/uL (1-3.4); LYMPHOCYTES % (AUTO) 4 % (22-44); MD SCAN; MONOCYTES # (AUTO) 0.75 x10^3/uL (0.2-0.8); MONOCYTES % (AUTO) 8 % (2-9); NEUTROPHILS # (AUTO) 8.19 x10^3/uL (1.8-6.8); NEUTROPHILS % (AUTO) 87 % (42-75)
[2018-03-27] MEDS ORDERED: LORazepam 2 MG/ML, 1ML ONE (11:22)
--- NOTE | 2018-03-27 11:25 | NUR ---
NO EXPERIENCE: Seizure activity witnessed for approximately 10 seconds, Dr. Bass came to bedside to evaluate patient. Patient is now postictal, frequent reorientation and calming measures provided. Seizure pads in place as well as continuous blood pressure, SPO2 and cardiac monitoring. Patient's primary RN Aida at bedside discussing plan of care with patient.
[2018-03-27] MEDS ORDERED: LORazepam 2 MG/ML, 1ML IVPush ONE (11:30)
--- NOTE | 2018-03-27 12:52 | NUR ---
pt with a large bm. stool sent to lab
--- NOTE | 2018-03-27 13:06 | NUR ---
pt given water and tolerating well.
--- NOTE | 2018-03-27 13:28 | NUR ---
pt given water. pt tolerating water.
[2018-03-27] MEDS ORDERED: ONDANSETRON ODT 4 MG PO PRN (13:30)
[2018-03-27] MEDS ORDERED: LORazepam 1MG TABLET PO PRN ×4 (13:30)
[2018-03-27] MEDS ORDERED: hydrALAzine 20 MG/ML, 1ML IVPush PRN (13:30)
[2018-03-27] MEDS ORDERED: LORazepam 2 MG/ML, 1ML IV PRN ×5 (13:30)
[2018-03-27] MEDS ORDERED: LORazepam 0.5MG TABLET PO PRN (13:30)
[2018-03-27] MEDS ORDERED: FOLIC ACID 5 MG/ML IM ONE (13:30)
[2018-03-27] MEDS ORDERED: DOCUSATE 100 MG CAPSULE PO PRN (13:30)
[2018-03-27] MEDS ORDERED: ONDANSETRON 2MG/ML, 2ML IVPush PRN (13:30)
--- NOTE | 2018-03-27 13:41 | NUR ---
report given to jose sellers. pt will then be transferred.
[2018-03-27 13:47] LABS: CLOSTRIDIUM DIFFICILE ANTIGEN NEGATIVE; CLOSTRIDIUM DIFFICILE TOXIN NEGATIVE (Negative)
[2018-03-27 14:25] VITALS: BP 136/80
[2018-03-27] MEDS ORDERED: SODIUM PHOSPHATE 10 MMOL in SODIUM CHLORIDE 0.9% 500 ML IV ONE (14:30)
[2018-03-27] MEDS ORDERED: MAGNESIUM OXIDE 400 MG TABLET PO ONE (14:30)
[2018-03-27] MEDS: POTASSIUM CHLORIDE 20 MEQ, MAGNESIUM SULFATE 2 GM, MVI ADULT 10 ML, FOLIC ACID 1 MG in ... IV SCH (15:24)
[2018-03-27 18:20] VITALS: BP 124/78
[2018-03-27 19:33] LABS: AMPHETAMINE SCREEN, URINE Negative (Negative); BARBITURATE SCREEN, URINE Negative (Negative); BENZODIAZEPINE SCREEN, URINE Positive (Negative); CANNABINOID SCREEN, URINE Negative (Negative); COCAINE SCREEN, URINE Negative (Negative); METHADONE SCREEN, URINE Negative (Negative); OPIATE SCREEN, URINE Negative (Negative)
[2018-03-27 21:14] LABS: MICROSCOPIC AUTO
[2018-03-27 21:16] LABS: CULTURE INDICATED? NO
[2018-03-28 01:02] VITALS: BP 140/83
[2018-03-28 07:10] VITALS: BP 127/71
[2018-03-28] MEDS: THIAMINE 100MG TABLET PO SCH (08:30)
[2018-03-28] MEDS: MULTIVITAMINS/MINERALS TABLET PO SCH (08:30)
[2018-03-28] MEDS: POTASSIUM CHLORIDE 20 MEQ, MAGNESIUM SULFATE 2 GM, MVI ADULT 10 ML, FOLIC ACID 1 MG in ... IV SCH (11:55)
[2018-03-28 13:23] VITALS: BP 114/64
[2018-03-28] MEDS ORDERED: ERTAPENEM 1 GM in SODIUM CHLORIDE 0.9% 50 ML IV SCH (15:00)
[2018-03-28] MEDS: CETIRIZINE 10 MG TABLET PO SCH (15:27)
[2018-03-28] MEDS ORDERED: GADOBUTROL 7.5 MMOL/7.5 ML PFS ONE (17:24)
[2018-03-28 19:28] VITALS: BP 118/75
[2018-03-29 01:50] VITALS: BP 118/73
[2018-03-29] MEDS: CALAMINE LOTION 180ML TP PRN ×3 (03:54→08:59)
[2018-03-29 07:11] VITALS: BP 128/83
[2018-03-29] MEDS: MULTIVITAMINS/MINERALS TABLET PO SCH (09:12)
[2018-03-29] MEDS: POTASSIUM CHLORIDE 20 MEQ, MAGNESIUM SULFATE 2 GM, MVI ADULT 10 ML, FOLIC ACID 1 MG in ... IV SCH (09:12)
[2018-03-29] MEDS: THIAMINE 100MG TABLET PO SCH (09:12)
[2018-03-29 12:21] LABS: ALANINE AMINOTRANSFERASE 323 U/L (12-78); ALBUMIN 3.3 g/dL (3.4-5.0); ANION GAP 5 mmol/L (5-15); CALCIUM 8.6 mg/dL (8.5-10.1); CHLORIDE 104 mmol/L (98-107); CREATININE 0.55 mg/dL (0.7-1.3)
[2018-03-29 12:23] LABS: ALKALINE PHOSPHATASE 96 U/L (45-117); TOTAL PROTEIN 7.8 g/dL (6.4-8.2)
[2018-03-29 13:23] LABS: BASOPHILS # (AUTO) 0.01 x10^3/uL (0-0.1); BASOPHILS % (AUTO) 0 % (0-1); EOSINOPHILS # (AUTO) 0.38 x10^3/uL (0-0.4); EOSINOPHILS % (AUTO) 6 % (1-7); LYMPHOCYTES % (AUTO) 10 % (22-44); MD NO; MEAN CORPUSCULAR HEMOGLOBIN 36.1 pg (27.5-34.5); MEAN CORPUSCULAR HGB CONC 34.1 g/dL (33.2-36.2); MEAN PLATELET VOLUME 8.3 fL (7.4-10.4); MONOCYTES # (AUTO) 0.36 x10^3/uL (0.2-0.8); MONOCYTES % (AUTO) 6 % (2-9); NEUTROPHILS # (AUTO) 4.76 x10^3/uL (1.8-6.8); NEUTROPHILS % (AUTO) 78 % (42-75); PLATELET COUNT 125 x10^3/uL (130-400); RED BLOOD COUNT 3.87 x10^6/uL (4.38-5.82); RED CELL DISTRIBUTION WIDTH 14.9 % (9.4-14.8)
[2018-03-29 15:53] VITALS: BP 128/82
[2018-03-29] MEDS: CETIRIZINE 10 MG TABLET PO SCH (17:41)
[2018-03-29 19:48] VITALS: BP 121/83
[2018-03-30 01:04] VITALS: BP 121/85
[2018-03-30 06:43] LABS: ALBUMIN 3.7 g/dL (3.4-5.0); ANION GAP 9 mmol/L (5-15); CALCIUM 9.4 mg/dL (8.5-10.1); CHLORIDE 101 mmol/L (98-107)
[2018-03-30 06:45] LABS: ALANINE AMINOTRANSFERASE 354 U/L (12-78); ALKALINE PHOSPHATASE 102 U/L (45-117); BILIRUBIN,TOTAL 0.7 mg/dL (0.2-1.0); CREATININE 0.68 mg/dL (0.7-1.3); TOTAL PROTEIN 8.6 g/dL (6.4-8.2)
[2018-03-30] MEDS: MULTIVITAMINS/MINERALS TABLET PO SCH (08:32)
[2018-03-30] MEDS: THIAMINE 100MG TABLET PO SCH (08:32)
[2018-03-30] MEDS: POTASSIUM CHLORIDE 20 MEQ, MAGNESIUM SULFATE 2 GM, MVI ADULT 10 ML, FOLIC ACID 1 MG in ... IV SCH (09:00)
[2018-03-30 09:28] VITALS: BP 119/83
[2018-03-30] MEDS ORDERED: THIA100T67 PO (12:30)
[2018-03-30] MEDS ORDERED: MULT-484 PO (12:30)
== END 2018-03-30 13:50 | disposition home or self-care (01) | DRG 101 ==
LOC: ED 10:08 → EDIP 13:21 → 4WST 13:58 → DCLOUNGE 03-30 13:37
PROVIDERS: ADMIT Internal Medicine; ATTEND Internal Medicine
DX: G40.909 Epilepsy, unspecified, not intractable, without status epilepticus (principal); E87.1 Hypo-osmolality and hyponatremia; E87.2 Acidosis; F10.239 Alcohol dependence with withdrawal, unspecified; B95.61 Methicillin susceptible Staphylococcus aureus infection as the cause of diseases classified elsewhere; D64.9 Anemia, unspecified; F10.229 Alcohol dependence with intoxication, unspecified; F41.1 Generalized anxiety disorder; K70.9 Alcoholic liver disease, unspecified; L29.9 Pruritus, unspecified; F32.9 Major depressive disorder, single episode, unspecified; R00.0 Tachycardia, unspecified
CPT/HCPCS: 36415; 74021; 99285; J7042; 70450; 70553; 80053; 80307; 81001; 82140; 83735; 84100; 85025; 87040; 87324; 93005; 95819; 96361; 96374; 96375; A9585; G0378; J1335; J2405; J3475; J3480; 92522-GN; J2060; J7030

== ENCOUNTER 2018-05-27 15:01 | Inpatient (IN) | payer MEDICAID, OTHER ==
[~2018-05-27] VITALS: Ht 170.2 cm; Wt 60.8 kg
[~2018-05-27 15:01] MED LIST changes: +MULT-484 PO
[2018-05-27] MEDS ORDERED: ONDANSETRON ODT 4 MG ONE (15:11)
[2018-05-27] MEDS ORDERED: SODIUM CHLORIDE 0.9% 1,000 ML IV ONE (15:26)
[2018-05-27] MEDS ORDERED: LORazepam 2 MG/ML, 1ML ONE (15:27)
[2018-05-27] MEDS ORDERED: LORazepam 2 MG/ML, 1ML IVPush ONE (15:30)
[2018-05-27] MEDS ORDERED: LORazepam 1MG TABLET PO ONE (15:30)
[2018-05-27] MEDS ORDERED: THIAMINE 100 MG in SODIUM CHLORIDE 0.9% 50 ML IVPB ONE (15:30)
[2018-05-27] MEDS ORDERED: ONDANSETRON ODT 4 MG PO ONE (15:30)
[2018-05-27] MEDS ORDERED: SODIUM CHLORIDE FLUSH 10ML SYR IVF ONE (15:30)
--- NOTE | 2018-05-27 15:34 | NUR ---
PT HAD SEIZURE X 1 IN ED, RN AT BEDSIDE AT TIME OF SEIZURE. PT BIT TONGUE, BLOOD SUCTIONED. AIRWAY MAINTAINED. SEIZURE ACTIVITY STOPPED AFTER APPROX 45 SECONDS. 1 MG IM ATIVAN ADMIN PER MD MATHEW' VERBAL ORDER. Addendum: 05/27/18 at 1545 by JAMEL PT HAD SEIZURE X 1 IN ED, RN AT BEDSIDE AT TIME OF SEIZURE. PT BIT TONGUE, BLOOD SUCTIONED. AIRWAY MAINTAINED. SEIZURE ACTIVITY STOPPED AFTER APPROX 45 SECONDS. 1 MG IM ATIVAN ADMIN PER MD MATHEW' VERBAL ORDER. WITH EXCEPTION TO TONGUE BITING, PT DID NOT SUSTAIN ANY INJURY.
--- NOTE | 2018-05-27 15:45 | NUR ---
SITTER REQUESTED PT IS POSTICTAL AND HIGH RISK FOR PULLING LINES/MONITORS.
--- NOTE | 2018-05-27 15:58 | NUR ---
PT SLEEPING AT THIS TIME, RESPS EVEN AND UNLABORED. ALL MONITORS IN PLACE. SEIZURE PRECAUTIONS IN PLACE. NO ORAL BLEEDING AT THIS TIME.
[2018-05-27] MEDS ORDERED: LORazepam 2 MG/ML, 1ML IM ONE (16:00)
[2018-05-27 16:11] LABS: BASOPHILS # (AUTO) 0.03 x10^3/uL (0-0.1); BASOPHILS % (AUTO) 0 % (0-1); EOSINOPHILS # (AUTO) 0.01 x10^3/uL (0-0.4); EOSINOPHILS % (AUTO) 0 % (1-7); LYMPHOCYTES # (AUTO) 0.28 x10^3/uL (1-3.4); LYMPHOCYTES % (AUTO) 2 % (22-44); MD NO; MEAN CORPUSCULAR HEMOGLOBIN 34.8 pg (27.5-34.5); MEAN CORPUSCULAR HGB CONC 34.4 g/dL (33.2-36.2); MEAN CORPUSCULAR VOLUME 101.2 fL (81-97); MEAN PLATELET VOLUME 6.6 fL (7.4-10.4); MONOCYTES # (AUTO) 0.79 x10^3/uL (0.2-0.8); MONOCYTES % (AUTO) 7 % (2-9); NEUTROPHILS # (AUTO) 10.69 x10^3/uL (1.8-6.8); NEUTROPHILS % (AUTO) 91 % (42-75); PLATELET COUNT 148 x10^3/uL (130-400); RED BLOOD COUNT 3.51 x10^6/uL (4.38-5.82); RED CELL DISTRIBUTION WIDTH 16.9 % (9.4-14.8)
--- NOTE | 2018-05-27 16:13 | NUR ---
PT TO CT. NADN AT THIS TIME.
[2018-05-27 16:22] LABS: ALANINE AMINOTRANSFERASE 34 U/L (12-78); ALBUMIN 3.2 g/dL (3.4-5.0); ANION GAP 20 mmol/L (5-15); CALCIUM 8.4 mg/dL (8.5-10.1); CHLORIDE 97 mmol/L (98-107); CREATININE 0.82 mg/dL (0.7-1.3)
[2018-05-27 16:24] LABS: ALKALINE PHOSPHATASE 96 U/L (45-117); BILIRUBIN,TOTAL 0.8 mg/dL (0.2-1.0); TOTAL PROTEIN 7.5 g/dL (6.4-8.2)
[2018-05-27 16:26] LABS: SALICYLATE LEVEL < 1.7 mg/dL (2.8-20.0)
[2018-05-27 16:27] LABS: ACETAMINOPHEN < 2 mcg/mL (10-30)
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
--- NOTE | 2018-05-27 17:29 | NUR ---
PT DONE WITH DECON, MOVED INTO ROOM 16. ALL MONIOTRS REPLACED. BELONGINGS DOUBLE BAGGED AND PLACED WITH PT. THIAMINE WAS SENT FROM PHARMACY, RN UNABLE TO START IN TIME D/T DECON PROCESS. THIAMINE CANNOT BE GIVEN INSTRUCTIONS STATE DON'T HANG AFTER 1700. MED SENT BACK TO PHARMACY, PHARMACY NOTIFIED PT NEEDS NEW IV THIAMINE.
[2018-05-27] MEDS ORDERED: SODIUM CHLORIDE FLUSH 10ML SYR IVF PRN (17:30)
--- NOTE | 2018-05-27 17:41 | NUR ---
REPORT GIVEN TO SAADIA HAYNES, PT AWAITING TRASNPORT TO [facility].
--- NOTE | 2018-05-27 17:50 | NUR ---
PT HAS CIWA SCORE 11, [facility] NOTIFIED. THIS RN ADMINISTERED 1 MG IV ATIVAN, IV PUSH WITH PRETTY MATHEW' OK. PT TOLERATED WELL. OXYGEN REAPPLIED AT 2L/MIN FOR TRANSPORT. PT A&O TO PERSON AND PLACE, RESPS EVEN AND UNLABORED, ITZELN.
--- NOTE | 2018-05-27 18:04 | NUR ---
SAADIA HAYNES CALLED TO UPDATE, RN NOTIFIED PT WAS MEDICATED WITH 1 MG IV ATIVAN FOR CIWA SCORE 11. PT A&O TO PERSON AND PLACE, NEURO INTACT, FOLLOWING COMMANDS. SPEECH CLEAR, SPEAKING IN FULL SENTENCES WITHOUT DIFFICULTY AT TIME OF TRANSFER. PT TRANSPORTED WITH BELONGINGS, DOUBLE BAGGED, BY EDT. PT TRANSPORTED WEARING OXYGEN AT 2L/MIN. NADN AT TRANSPORT. THIAMINE ARRIVED FROM PHARMACY, MEDICATION TUBED TO [facility] FLOOR. PIV PATENT AT TIME OF TRANSFER, INFUSING NS AT 75ML /HR. RECEIVING RN AWARE OF NEED FOR URINE SAMPLE FOR UA AND UTOX.
[2018-05-27 18:06] VITALS: BP 114/70
[2018-05-27] MEDS ORDERED: NS + 20MEQ KCL 1,000 ML IV SCH (19:40)
[2018-05-27] MEDS ORDERED: PERMETHRIN CRM 5%, 60GM TP ONE (20:00)
[2018-05-27] MEDS ORDERED: POLYETHYLENE GLYCOL 17 GM PACKET PO PRN (20:00)
[2018-05-27] MEDS ORDERED: BISACODYL 10 MG SUPP PR PRN (20:00)
[2018-05-27] MEDS ORDERED: hydrALAzine 20 MG/ML, 1ML IVPush PRN (20:00)
[2018-05-27] MEDS ORDERED: ONDANSETRON ODT 4 MG PO PRN (20:00)
[2018-05-27] MEDS ORDERED: ACETAMINOPHEN 325 MG TABLET PO PRN (20:00)
[2018-05-27] MEDS: THIAMINE 100MG TABLET PO SCH (20:55)
[2018-05-27] MEDS: CETIRIZINE 10 MG TABLET PO SCH (21:16)
[2018-05-27] MEDS: LORazepam 2 MG/ML, 1ML IVPush PRN (21:17)
[2018-05-27 21:55] LABS: MICROSCOPIC INDICATED
[2018-05-27 22:03] LABS: CULTURE INDICATED? NO
[2018-05-27 22:04] LABS: AMPHETAMINE SCREEN, URINE Negative (Negative); BARBITURATE SCREEN, URINE Negative (Negative); BENZODIAZEPINE SCREEN, URINE Negative (Negative); CANNABINOID SCREEN, URINE Negative (Negative); COCAINE SCREEN, URINE Negative (Negative); METHADONE SCREEN, URINE Negative (Negative); OPIATE SCREEN, URINE Negative (Negative)
[2018-05-28] MEDS: LORazepam 2 MG/ML, 1ML IVPush PRN ×3 (00:24→17:22)
[2018-05-28 01:11] VITALS: BP 127/79
[2018-05-28] MEDS: CHLORDIAZEPOXIDE 25 MG CAPSULE PO PRN ×2 (01:22→17:22)
[2018-05-28 07:28] LABS: ALBUMIN 2.8 g/dL (3.4-5.0); ANION GAP 10 mmol/L (5-15); CALCIUM 8.3 mg/dL (8.5-10.1); CHLORIDE 103 mmol/L (98-107)
[2018-05-28 07:31] LABS: ALANINE AMINOTRANSFERASE 28 U/L (12-78); ALKALINE PHOSPHATASE 89 U/L (45-117); BILIRUBIN,TOTAL 1.1 mg/dL (0.2-1.0); TOTAL PROTEIN 6.9 g/dL (6.4-8.2)
[2018-05-28 07:36] LABS: BASOPHILS # (AUTO) 0.02 x10^3/uL (0-0.1); BASOPHILS % (AUTO) 0 % (0-1); EOSINOPHILS # (AUTO) 0.12 x10^3/uL (0-0.4); EOSINOPHILS % (AUTO) 1 % (1-7); LYMPHOCYTES # (AUTO) 0.57 x10^3/uL (1-3.4); LYMPHOCYTES % (AUTO) 7 % (22-44); MD NO; MEAN CORPUSCULAR HEMOGLOBIN 34.2 pg (27.5-34.5); MEAN CORPUSCULAR HGB CONC 33.3 g/dL (33.2-36.2); MEAN CORPUSCULAR VOLUME 102.7 fL (81-97); MEAN PLATELET VOLUME 7.3 fL (7.4-10.4); MONOCYTES # (AUTO) 0.87 x10^3/uL (0.2-0.8); MONOCYTES % (AUTO) 10 % (2-9); NEUTROPHILS # (AUTO) 7.13 x10^3/uL (1.8-6.8); NEUTROPHILS % (AUTO) 82 % (42-75); PLATELET COUNT 137 x10^3/uL (130-400); RED BLOOD COUNT 3.56 x10^6/uL (4.38-5.82); RED CELL DISTRIBUTION WIDTH 16.6 % (9.4-14.8)
[2018-05-28 07:50] VITALS: BP 109/64
[2018-05-28] MEDS ORDERED: ACETAMINOPHEN 325 MG TABLET PO PRN (08:00)
[2018-05-28] MEDS: SODIUM CHLORIDE 0.9% 1,000 ML IV SCH ×2 (08:00→22:40)
[2018-05-28] MEDS: LEVOTHYROXINE 25 MCG TABLET PO SCH (09:30)
[2018-05-28] MEDS: SENNA/DOCUSATE TABLET PO SCH (09:30)
[2018-05-28] MEDS: FOLIC ACID 1 MG TABLET PO SCH (09:30)
[2018-05-28] MEDS: THIAMINE 100MG TABLET PO SCH ×2 (09:31→20:59)
[2018-05-28] MEDS: SERTRALINE 50MG TABLET PO SCH (09:31)
[2018-05-28] MEDS: MULTIVITAMINS/MINERALS TABLET PO SCH (09:31)
[2018-05-28 12:19] VITALS: BP 111/74
[2018-05-28 20:51] VITALS: BP 123/80
[2018-05-28] MEDS: CETIRIZINE 10 MG TABLET PO SCH (20:59)
[2018-05-29 02:14] VITALS: BP 123/64
[2018-05-29] MEDS: SODIUM CHLORIDE 0.9% 1,000 ML IV SCH (08:00)
[2018-05-29 08:05] VITALS: BP 136/78
[2018-05-29] MEDS: SENNA/DOCUSATE TABLET PO SCH (09:00)
[2018-05-29] MEDS: CHLORHEXIDINE 15 ML UDC MM SCH ×3 (09:00→20:57)
[2018-05-29] MEDS: MULTIVITAMINS/MINERALS TABLET PO SCH (09:22)
[2018-05-29] MEDS: LEVOTHYROXINE 25 MCG TABLET PO SCH (09:22)
[2018-05-29] MEDS: FOLIC ACID 1 MG TABLET PO SCH (09:22)
[2018-05-29] MEDS: SERTRALINE 50MG TABLET PO SCH (09:23)
[2018-05-29] MEDS: THIAMINE 100MG TABLET PO SCH ×2 (09:23→20:57)
[2018-05-29 09:59] LABS: BASOPHILS % (AUTO) 0 % (0-1); EOSINOPHILS # (AUTO) 0.64 x10^3/uL (0-0.4); EOSINOPHILS % (AUTO) 8 % (1-7); LYMPHOCYTES # (AUTO) 0.46 x10^3/uL (1-3.4); LYMPHOCYTES % (AUTO) 6 % (22-44); MD NO; MEAN CORPUSCULAR HGB CONC 34.3 g/dL (33.2-36.2); MEAN CORPUSCULAR VOLUME 101.7 fL (81-97); MEAN PLATELET VOLUME 7.7 fL (7.4-10.4); MONOCYTES # (AUTO) 0.66 x10^3/uL (0.2-0.8); MONOCYTES % (AUTO) 8 % (2-9); NEUTROPHILS # (AUTO) 6.23 x10^3/uL (1.8-6.8); NEUTROPHILS % (AUTO) 78 % (42-75); PLATELET COUNT 147 x10^3/uL (130-400); RED BLOOD COUNT 3.41 x10^6/uL (4.38-5.82); RED CELL DISTRIBUTION WIDTH 16.7 % (9.4-14.8)
[2018-05-29 10:07] LABS: ANION GAP 8 mmol/L (5-15); CALCIUM 8.3 mg/dL (8.5-10.1); CHLORIDE 105 mmol/L (98-107); CREATININE 0.59 mg/dL (0.7-1.3)
[2018-05-29] MEDS ORDERED: MAGNESIUM SULFATE PMX 2GM/50ML 50 ML IV ONE (11:00)
[2018-05-29 13:24] VITALS: BP 120/81
[2018-05-29 19:10] VITALS: BP 119/84
[2018-05-29] MEDS: CETIRIZINE 10 MG TABLET PO SCH (20:57)
[2018-05-30 00:13] VITALS: BP 117/74
[2018-05-30] MEDS: LEVOTHYROXINE 25 MCG TABLET PO SCH (05:06)
[2018-05-30] MEDS: SODIUM CHLORIDE 0.9% 1,000 ML IV SCH ×2 (07:00→23:40)
[2018-05-30 08:20] VITALS: BP 126/82
[2018-05-30] MEDS: SERTRALINE 50MG TABLET PO SCH (09:01)
[2018-05-30] MEDS: FOLIC ACID 1 MG TABLET PO SCH (09:01)
[2018-05-30] MEDS: MULTIVITAMINS/MINERALS TABLET PO SCH (09:01)
[2018-05-30] MEDS: CHLORHEXIDINE 15 ML UDC MM SCH ×3 (09:01→22:13)
[2018-05-30] MEDS: SENNA/DOCUSATE TABLET PO SCH (09:01)
[2018-05-30] MEDS: THIAMINE 100MG TABLET PO SCH ×2 (09:01→22:13)
[2018-05-30] MEDS ORDERED: MAGNESIUM CITRATE 300ML ORAL SOL PO ONE (12:30)
[2018-05-30] MEDS ORDERED: DIPHENHYDRAMINE/ZINC CRM 2%, 30GM TP PRN (12:30)
[2018-05-30 14:00] VITALS: BP 122/80
[2018-05-30] MEDS: DIPHENHYDRAMINE 25 MG CAPSULE PO PRN ×2 (15:34→22:12)
[2018-05-30 19:48] VITALS: BP 128/84
[2018-05-30] MEDS: CETIRIZINE 10 MG TABLET PO SCH (22:13)
[2018-05-31 02:18] VITALS: BP 122/74
[2018-05-31] MEDS: LEVOTHYROXINE 25 MCG TABLET PO SCH (04:42)
[2018-05-31 07:40] VITALS: BP 114/71
[2018-05-31] MEDS: DIPHENHYDRAMINE 25 MG CAPSULE PO PRN (07:41)
[2018-05-31] MEDS: SERTRALINE 50MG TABLET PO SCH (07:41)
[2018-05-31] MEDS: SENNA/DOCUSATE TABLET PO SCH (07:41)
[2018-05-31] MEDS: FOLIC ACID 1 MG TABLET PO SCH (07:41)
[2018-05-31] MEDS: CHLORHEXIDINE 15 ML UDC MM SCH (07:41)
[2018-05-31] MEDS: MULTIVITAMINS/MINERALS TABLET PO SCH (07:41)
[2018-05-31] MEDS: THIAMINE 100MG TABLET PO SCH (07:41)
[2018-05-31] MEDS ORDERED: BISACODYL 10 MG SUPP PR SCH (09:00)
[2018-05-31] MEDS ORDERED: LEVO25TA2 PO (10:08)
[2018-05-31] MEDS ORDERED: DIPH25CA61 PO (10:08)
== END 2018-05-31 13:31 | disposition home or self-care (01) | DRG 101 ==
LOC: ED 15:52 → EDIP 17:11 → 4WST 17:57
PROVIDERS: ADMIT Internal Medicine; ATTEND Internal Medicine
DX: G40.509 Epileptic seizures related to external causes, not intractable, without status epilepticus (principal); E44.1 Mild protein-calorie malnutrition; E87.1 Hypo-osmolality and hyponatremia; E87.2 Acidosis; F10.239 Alcohol dependence with withdrawal, unspecified; D53.9 Nutritional anemia, unspecified; E03.9 Hypothyroidism, unspecified; E55.9 Vitamin D deficiency, unspecified; E83.42 Hypomagnesemia; E87.6 Hypokalemia; F41.1 Generalized anxiety disorder; G40.909 Epilepsy, unspecified, not intractable, without status epilepticus; K12.1 Other forms of stomatitis; K59.00 Constipation, unspecified; K70.9 Alcoholic liver disease, unspecified; L29.9 Pruritus, unspecified; Z68.21 Body mass index [BMI] 21.0-21.9, adult; Q80.0 Ichthyosis vulgaris; Z82.49 Family history of ischemic heart disease and other diseases of the circulatory system; Z91.010 Allergy to peanuts
CPT/HCPCS: 36415; 70450; 71045; 80048; 80053; 80307; 80329; 81001; 82140; 83735; 84443; 85025; 93005; 96372; 96374; G0378; J3411; J3480; Q0162; G0480; J2060; J3475; J7030; Q0163

== ENCOUNTER 2018-09-06 18:17 | Inpatient (IN) | payer MEDICAID, OTHER ==
[~2018-09-06] VITALS: Ht 170.2 cm; Wt 62.6 kg
[~2018-09-06 18:17] MED LIST changes: +DIPH25CA61 PO; +DIPH28CR21 TP; -DIPH28CR5 TP; +HYDR-826 PO; -HYDR25TA11 PO; +LEVO25TA2 PO
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
[2018-09-06] MEDS ORDERED: LORazepam 2 MG/ML, 1ML ONE (18:36)
[2018-09-06] MEDS ORDERED: LORazepam 2 MG/ML, 1ML IVPush ONE (19:00)
--- NOTE | 2018-09-06 19:06 | NUR ---
REPORT GIVEN TO BRODY BUSH
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
[2018-09-06 19:47] LABS: BASOPHILS # (AUTO) 0.02 x10^3/uL (0-0.1); BASOPHILS % (AUTO) 0 % (0-1); EOSINOPHILS # (AUTO) 0.02 x10^3/uL (0-0.4); EOSINOPHILS % (AUTO) 0 % (1-7); LYMPHOCYTES # (AUTO) 0.29 x10^3/uL (1-3.4); LYMPHOCYTES % (AUTO) 4 % (22-44); MD NO; MEAN CORPUSCULAR HEMOGLOBIN 35.1 pg (27.5-34.5); MEAN CORPUSCULAR HGB CONC 32.9 g/dL (33.2-36.2); MEAN CORPUSCULAR VOLUME 106.8 fL (81-97); MEAN PLATELET VOLUME 6.8 fL (7.4-10.4); MONOCYTES # (AUTO) 0.66 x10^3/uL (0.2-0.8); MONOCYTES % (AUTO) 8 % (2-9); NEUTROPHILS # (AUTO) 7.03 x10^3/uL (1.8-6.8); NEUTROPHILS % (AUTO) 88 % (42-75); PLATELET COUNT 166 x10^3/uL (130-400); RED BLOOD COUNT 3.66 x10^6/uL (4.38-5.82); RED CELL DISTRIBUTION WIDTH 15.1 % (9.4-14.8)
[2018-09-06 19:53] LABS: ALANINE AMINOTRANSFERASE 56 U/L (12-78); ANION GAP 19 mmol/L (5-15); CHLORIDE 102 mmol/L (98-107); CREATININE 0.68 mg/dL (0.7-1.3)
[2018-09-06 19:54] LABS: SALICYLATE LEVEL < 1.7 mg/dL (2.8-20.0)
[2018-09-06 19:58] LABS: ALKALINE PHOSPHATASE 144 U/L (45-117); BILIRUBIN,TOTAL 0.6 mg/dL (0.2-1.0); TOTAL PROTEIN 8.7 g/dL (6.4-8.2); TROPONIN I < 0.015 ng/mL (0.000-0.045)
--- NOTE | 2018-09-06 20:02 | NUR ---
PT TO CT
[2018-09-06] MEDS: MORPHINE SULFATE 4 MG/ML, 1ML IVPush PRN ×2 (20:08→20:54)
[2018-09-06] MEDS ORDERED: MORPHINE SULFATE 4 MG/ML, 1ML ONE ×2 (20:08→20:55)
[2018-09-06] MEDS ORDERED: ONDANSETRON 2MG/ML, 2ML ONE (20:09)
--- NOTE | 2018-09-06 20:30 | NUR ---
PT RETURNED FROM CT, PER PATIENT ACCOUNT ANALYST PT STATED TOO MUCH PAIN, ERP AWARE
--- NOTE | 2018-09-06 20:58 | NUR ---
PT STATED HE HAS TOO MUCH PAIN, REQUESTING MORE MRPHINE PRIOR TO HAVING CT, ERP UPDATED AND ORDER RECEIVED, PT MEDICATED
--- NOTE | 2018-09-06 21:21 | NUR ---
PT TO CT
[2018-09-06] MEDS ORDERED: ONDANSETRON 2MG/ML, 2ML IVPush ONE (21:30)
--- NOTE | 2018-09-06 21:49 | NUR ---
WARDROBE CONSULTANT STATED PT DESATED ON MONITOR, PT ASSENOTED WITH MADSEN COLOR, SEIZURE LASTING APPROX 20 SEC, PT DROWSY, INCONTINENT OF URINE. PT CLEANED, MONITORS IN PLACE, ERP UPDATED, CALL LIGHT WITHINR EACH, WILL CONTINUE TO MONITOR
[2018-09-06] MEDS ORDERED: MORPHINE SULFATE 4 MG/ML, 1ML IVPush PRN (22:30)
[2018-09-06] MEDS ORDERED: ONDANSETRON 2MG/ML, 2ML IVPush PRN ×2 (22:30→23:00)
[2018-09-06] MEDS ORDERED: POTASSIUM CHLORIDE 20 MEQ, MAGNESIUM SULFATE 2 GM, THIAMINE 200 MG, MVI ADULT 10 ML, FO... IV SCH (22:37)
[2018-09-06] MEDS ORDERED: PERMETHRIN CRM 5%, 60GM TP SCH (23:00)
[2018-09-06] MEDS ORDERED: BISACODYL 10 MG SUPP PR PRN (23:00)
[2018-09-06] MEDS ORDERED: LORazepam 2 MG/ML, 1ML IVPush PRN (23:00)
[2018-09-06] MEDS ORDERED: CHLORDIAZEPOXIDE 25 MG CAPSULE PO PRN (23:00)
[2018-09-06 23:45] VITALS: BP 140/90
[2018-09-07] MEDS: morphine SULFATE 10 MG/ML, 1ML IVPush PRN ×3 (00:21→10:39)
[2018-09-07] MEDS ORDERED: LORazepam 2 MG/ML, 1ML IV PRN ×4 (01:30)
[2018-09-07] MEDS ORDERED: LORazepam 0.5MG TABLET PO PRN (01:30)
[2018-09-07] MEDS ORDERED: LORazepam 1MG TABLET PO PRN ×4 (01:30)
[2018-09-07 02:24] VITALS: BP 132/80
[2018-09-07] MEDS: LORazepam 2 MG/ML, 1ML IV PRN ×2 (05:24→08:11)
[2018-09-07 05:25] LABS: BASOPHILS # (AUTO) 0.01 x10^3/uL (0-0.1); BASOPHILS % (AUTO) 0 % (0-1); EOSINOPHILS % (AUTO) 0 % (1-7); LYMPHOCYTES # (AUTO) 0.28 x10^3/uL (1-3.4); LYMPHOCYTES % (AUTO) 3 % (22-44); MD NO; MEAN CORPUSCULAR HEMOGLOBIN 34.3 pg (27.5-34.5); MEAN CORPUSCULAR HGB CONC 32.7 g/dL (33.2-36.2); MEAN CORPUSCULAR VOLUME 104.8 fL (81-97); MEAN PLATELET VOLUME 7.2 fL (7.4-10.4); MONOCYTES # (AUTO) 0.86 x10^3/uL (0.2-0.8); MONOCYTES % (AUTO) 10 % (2-9); NEUTROPHILS # (AUTO) 7.73 x10^3/uL (1.8-6.8); NEUTROPHILS % (AUTO) 87 % (42-75); PLATELET COUNT 131 x10^3/uL (130-400); RED BLOOD COUNT 3.47 x10^6/uL (4.38-5.82)
[2018-09-07 05:33] LABS: CALCIUM 8.1 mg/dL (8.5-10.1); CHLORIDE 103 mmol/L (98-107)
[2018-09-07 05:39] LABS: ALANINE AMINOTRANSFERASE 49 U/L (12-78); ALBUMIN 2.9 g/dL (3.4-5.0); ALKALINE PHOSPHATASE 133 U/L (45-117); ANION GAP 9 mmol/L (5-15); BILIRUBIN,TOTAL 1.1 mg/dL (0.2-1.0); CREATININE 0.53 mg/dL (0.7-1.3); TOTAL PROTEIN 8.3 g/dL (6.4-8.2)
[2018-09-07 08:16] VITALS: BP 123/76
[2018-09-07 11:12] LABS: AMPHETAMINE SCREEN, URINE Negative (Negative); BARBITURATE SCREEN, URINE Negative (Negative); BENZODIAZEPINE SCREEN, URINE Negative (Negative); CANNABINOID SCREEN, URINE Negative (Negative); COCAINE SCREEN, URINE Negative (Negative); OPIATE SCREEN, URINE Positive (Negative)
[2018-09-07] MEDS ORDERED: ACETAMINOPHEN 500 MG TABLET PO PRN (12:00)
[2018-09-07 12:23] LABS: METHADONE SCREEN, URINE Negative (Negative)
[2018-09-07] MEDS: CHLORDIAZEPOXIDE 10 MG CAPSULE PO SCH ×3 (13:27→23:36)
[2018-09-07] MEDS ORDERED: FENTANYL PF 100 MCG/2ML ONE ×2 (14:10→14:56)
[2018-09-07] MEDS ORDERED: MIDAZOLAM 1 MG/ML, 2ML ONE (14:10)
[2018-09-07] MEDS ORDERED: CEFAZOLIN 1,000 MG ONE (14:23)
[2018-09-07] MEDS ORDERED: KETOROLAC 30 MG/1 ML ONE (14:23)
[2018-09-07] MEDS ORDERED: DEXAMETHASONE 4 MG/ML, 1ML ONE (14:23)
[2018-09-07] MEDS ORDERED: ONDANSETRON 2MG/ML, 2ML ONE (14:23)
[2018-09-07] MEDS ORDERED: PROPOFOL 10 MG/ML, 20ML ONE (14:23)
[2018-09-07] MEDS ORDERED: LORazepam 2 MG/ML, 1ML IVPush PRN (14:30)
[2018-09-07] MEDS ORDERED: MEPERIDINE/PF 25MG/0.5ML IVPush PRN (14:30)
[2018-09-07] MEDS ORDERED: DIPHENHYDRAMINE 50 MG/ML, 1ML IVPush PRN (14:30)
[2018-09-07] MEDS ORDERED: OXYcodone 5 MG/5 ML ORAL.SOL UDC PO PRN (14:30)
[2018-09-07] MEDS ORDERED: DIAZEPAM 5 MG/ML, 2ML IVPush PRN (14:30)
[2018-09-07] MEDS ORDERED: HALOPERIDOL 5 MG/ML IV PRN (14:30)
[2018-09-07] MEDS ORDERED: METOPROLOL 1 MG/ML, 5ML IV PRN (14:30)
[2018-09-07] MEDS ORDERED: FENTANYL PF 100 MCG/2ML IV PRN (14:30)
[2018-09-07] MEDS ORDERED: MIDAZOLAM 1 MG/ML, 2ML IV PRN (14:30)
[2018-09-07] MEDS ORDERED: LABETALOL 5MG/ML, 20ML IV PRN (14:30)
[2018-09-07] MEDS ORDERED: PROCHLORPERAZINE 5 MG/ML, 2ML IV PRN (14:30)
[2018-09-07] MEDS ORDERED: HYDROmorphone 2 MG/ML, 1ML IVPush PRN (14:30)
[2018-09-07] MEDS ORDERED: PROMETHAZINE 25 MG/ML, 1ML IV PRN (14:30)
[2018-09-07] MEDS ORDERED: hydrALAzine 20 MG/ML, 1ML IV PRN (14:30)
[2018-09-07] MEDS ORDERED: OXYcodone 5 MG/5 ML ORAL.SOL UDC ONE (14:56)
[2018-09-07] MEDS: CEFAZOLIN PMX 1GM/50ML 50 ML IVPB SCH (18:06)
[2018-09-07 18:35] VITALS: BP 118/78
[2018-09-07] MEDS: MAGNESIUM SULFATE 2 GM, THIAMINE 200 MG, MVI ADULT 10 ML, FOLIC ACID 1 MG in D5%-0.9% N... IV SCH (22:55)
[2018-09-08 00:38] VITALS: BP 96/64
[2018-09-08] MEDS: CEFAZOLIN PMX 1GM/50ML 50 ML IVPB SCH ×2 (02:40→09:23)
[2018-09-08 05:48] LABS: ANION GAP 6 mmol/L (5-15); CALCIUM 8.4 mg/dL (8.5-10.1); CHLORIDE 105 mmol/L (98-107)
[2018-09-08 05:49] LABS: CREATININE 0.59 mg/dL (0.7-1.3)
[2018-09-08 06:07] LABS: MEAN CORPUSCULAR HEMOGLOBIN 34.4 pg (27.5-34.5); MEAN CORPUSCULAR HGB CONC 32.4 g/dL (33.2-36.2); MEAN CORPUSCULAR VOLUME 106.3 fL (81-97); MEAN PLATELET VOLUME 8.4 fL (7.4-10.4); PLATELET COUNT 119 x10^3/uL (130-400); RED BLOOD COUNT 3.41 x10^6/uL (4.38-5.82); RED CELL DISTRIBUTION WIDTH 15.4 % (9.4-14.8)
[2018-09-08] MEDS: CHLORDIAZEPOXIDE 10 MG CAPSULE PO SCH (06:44)
[2018-09-08 06:55] LABS: BASOPHILS # (AUTO) 0.02 x10^3/uL (0-0.1); BASOPHILS % (AUTO) 0 % (0-1); EOSINOPHILS # (AUTO) 0.06 x10^3/uL (0-0.4); EOSINOPHILS % (AUTO) 1 % (1-7); LYMPHOCYTES # (AUTO) 0.65 x10^3/uL (1-3.4); LYMPHOCYTES % (AUTO) 10 % (22-44); MD SCAN; MONOCYTES # (AUTO) 0.68 x10^3/uL (0.2-0.8); MONOCYTES % (AUTO) 10 % (2-9); NEUTROPHILS # (AUTO) 5.21 x10^3/uL (1.8-6.8); NEUTROPHILS % (AUTO) 79 % (42-75)
[2018-09-08 07:23] VITALS: BP 118/77
[2018-09-08] MEDS: ENOXAPARIN 40 MG/0.4 ML SQ SCH (09:23)
[2018-09-08 13:00] VITALS: BP 107/74
[2018-09-08] MEDS ORDERED: FOLI-17 PO (13:22)
[2018-09-08] MEDS ORDERED: THIA100T67 PO (13:22)
[2018-09-08] MEDS ORDERED: MULT9LIQ10 PO (13:22)
[2018-09-08] MEDS ORDERED: ACET500T71 PO (13:22)
[2018-09-08] MEDS ORDERED: PERM60CR17 TP (13:22)
[2018-09-08] MEDS ORDERED: ASPI325T17 PO (13:22)
[2018-09-08 20:19] VITALS: BP 117/80
[2018-09-08] MEDS: MAGNESIUM SULFATE 2 GM, THIAMINE 200 MG, MVI ADULT 10 ML, FOLIC ACID 1 MG in D5%-0.9% N... IV SCH (23:07)
[2018-09-09 01:00] VITALS: BP 123/77
[2018-09-09 06:33] VITALS: BP 131/70
[2018-09-09] MEDS ORDERED: MULTIVITAMIN INTRINS/IRON CAPSULE PO SCH ×2 (09:00)
[2018-09-09] MEDS ORDERED: THIAMINE 100MG TABLET PO SCH (09:00)
[2018-09-09] MEDS ORDERED: FOLIC ACID 1 MG TABLET PO SCH (09:00)
[2018-09-09] MEDS: ENOXAPARIN 40 MG/0.4 ML SQ SCH (09:00)
[2018-09-09 13:13] VITALS: BP 132/86
[2018-09-10] MEDS ORDERED: PERMETHRIN CRM 5%, 60GM TP ONE
[2018-09-10] MEDS ORDERED: PERMETHRIN CRM 5%, 60GM TP SCH
== END 2018-09-09 21:50 | disposition home or self-care (01) | DRG 481 ==
LOC: ED 20:35 → EDIP 22:03 → 4EST 23:15
PROVIDERS: ADMIT Internal Medicine; ATTEND Internal Medicine
PROC: 0QS734Z Reposition Left Upper Femur with Internal Fixation Device, Percutaneous Approach (ICD-10-PCS; principal; 2018-09-07 14:15)
DX: S72.002A Fracture of unspecified part of neck of left femur, initial encounter for closed fracture (principal); F10.230 Alcohol dependence with withdrawal, uncomplicated; Y93.01 Activity, walking, marching and hiking; B86 Scabies; D53.9 Nutritional anemia, unspecified; E03.9 Hypothyroidism, unspecified; E55.9 Vitamin D deficiency, unspecified; Y90.9 Presence of alcohol in blood, level not specified; F32.9 Major depressive disorder, single episode, unspecified; F41.1 Generalized anxiety disorder; G40.909 Epilepsy, unspecified, not intractable, without status epilepticus; K70.9 Alcoholic liver disease, unspecified; Z60.4 Social exclusion and rejection; V03.10XA Pedestrian on foot injured in collision with car, pick-up truck or van in traffic accident, initial encounter; Y92.89 Other specified places as the place of occurrence of the external cause; Z63.8 Other specified problems related to primary support group; Z82.49 Family history of ischemic heart disease and other diseases of the circulatory system
CPT/HCPCS: 36415; 73501; 73502; 76000; 99285; J7042; 70450; 71045; 80048; 80053; 80307; 82607; 83735; 84443; 84484; 85025; 93005; 96374; C1713; G0378; J0690; J1100; J1650; J1885; J2250; J2405; J2704; J3010; J3411; J3475; J3480; 92523-GN; J2060; J2270